=== PATIENT | male | born 1990 | race African-American/Black ===

== ENCOUNTER 2022-07-19 14:23 | Outpatient (CLI) | payer OTHER | END 2022-07-19 14:24 | disposition home or self-care (01) | LOC: TBSIIMAG 14:23 | PROVIDERS: ATTEND Neurological Surgery | DX: M54.50 Low back pain, unspecified (principal); M54.2 Cervicalgia | CPT/HCPCS: 72050 ==

== ENCOUNTER 2022-08-31 10:09 | Outpatient (CLI) | payer OTHER | END 2022-08-31 10:10 | disposition home or self-care (01) | LOC: TBSIIMAG 10:09 | PROVIDERS: ATTEND Anesthesiology Pain Medicine | DX: M54.2 Cervicalgia (principal); M54.50 Low back pain, unspecified | CPT/HCPCS: 72040; 72100 ==